=== PATIENT | male | born 1950 | race Caucasian/White ===

== ENCOUNTER → 2019-10-06 12:07 | Outpatient (CLI) | payer OTHER | END | disposition home or self-care (01) | LOC: LAB 12:07 | PROVIDERS: ATTEND Internal Medicine Hematology & Oncology | DX: D50.8 Other iron deficiency anemias (principal); E29.1 Testicular hypofunction; C18.8 Malignant neoplasm of overlapping sites of colon; D45 Polycythemia vera; D75.9 Disease of blood and blood-forming organs, unspecified ==

== ENCOUNTER 2022-11-24 05:13 | Day surgery (SDC) | payer OTHER ==
[~2022-11-24] VITALS: Ht 172.7 cm; Wt 81.6 kg
[~2022-11-24 05:13] MED LIST: ALLOPURINOL300 MG PO; NIAC PO; TOPROL XL25 M1 PO; VITAMIN PO
== END 2022-11-24 14:35 | disposition home or self-care (01) ==
LOC: CIR.AMB 05:13
PROVIDERS: ATTEND Surgery
DX: K40.20 Bilateral inguinal hernia, without obstruction or gangrene, not specified as recurrent (principal); D17.6 Benign lipomatous neoplasm of spermatic cord; Z88.2 Allergy status to sulfonamides; Z88.8 Allergy status to other drugs, medicaments and biological substances; Z20.822 Contact with and (suspected) exposure to COVID-19; I10 Essential (primary) hypertension
CPT/HCPCS: 49650; C1781